=== PATIENT | male | born 1995 | race African-American/Black ===

== ENCOUNTER 2016-10-23 09:03 | Emergency (ER) | payer OTHER ==
[2016-10-23] MEDS ORDERED: Ibuprofen TAB* 600 MG PO ONE (12:21)
[2016-10-23 13:08] VITALS: BP 122/71
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
== END 2016-10-23 13:07 | disposition home or self-care (01) ==
LOC: ED 09:03
DX: S00.91XA Abrasion of unspecified part of head, initial encounter (principal); S80.01XA Contusion of right knee, initial encounter; M79.602 Pain in left arm; Y09 Assault by unspecified means; Y93.9 Activity, unspecified; Y92.9 Unspecified place or not applicable; Y99.9 Unspecified external cause status; F17.210 Nicotine dependence, cigarettes, uncomplicated
CPT/HCPCS: 99282; A9270-GY